=== PATIENT | female | born 1940 | race Caucasian/White ===

== ENCOUNTER 2016-09-15 09:03 | Emergency (ER) | payer MEDICARE ==
[~2016-09-15 09:03] MED LIST: ASCO500C PO; ASPI-482 PO; ATOR20TA PO; ERYT30GE2 TP; GLUC1TAB71 PO; HYDR-2161 PO; HYDR12.58 PO; LEVO200T PO; LORC10TA PO; MELA1TAB11 PO; METAMUCIL POWD283 GM PO; MULT-246 PO; NAPR500T3 PO; OMEG1CAP16 PO; OMEP40CA5 PO; SELE50TA PO; TRIA10.8 NS; UBID10CA5 PO; [UNRECOGNIZED DRUG - CODE] TP
[2016-09-15] MEDS ORDERED: NITROGLYCERIN SUBLINGUAL 0.4 MG BOTTLE OF 25. SL PRN (09:15)
[2016-09-15] MEDS: ASPIRIN 81 MG TAB.CHEW PO ONE (09:30)
[2016-09-15 09:33] LABS: BASO % 1 % (0-3); EOS # 0.1 x10^3/uL (0.0-0.7); EOS % 2 % (0-3); HEMATOCRIT 47.7 % (36.0-47.0); HEMOGLOBIN 15.8 g/dL (12.0-15.5); LYMPH # 1.2 x10^3/uL (1.0-4.8); LYMPH % 19 % (24-48); MEAN CORPUSCULAR HEMOGLOBIN 31 pg (25-35); MEAN CORPUSCULAR HGB CONC 33 g/dL (31-37); MEAN CORPUSCULAR VOLUME 92 fL (79-100); MONO # 0.6 x10^3/uL (0.0-1.1); MONO % 9 % (0-9); NEUT # 4.2 x10^3uL (1.8-7.7); NEUT % 69 % (31-73); PLATELET COUNT 201 x10^3/uL (140-400); RED BLOOD COUNT 5.16 x10^6/uL (3.50-5.40); RED CELL DISTRIBUTION WIDTH 14.5 % (11.5-14.5)
--- NOTE | 2016-09-15 09:38 | PHYS DOC ---
General Chief Complaint: CHEST PAIN Stated Complaint: CHEST PAIN Time Seen by MD: 09:05 Source: patient Exam Limitations: no limitations Problems: History of Present Illness Initial Comments Pt is 75/F to ED c/o chest pain. Pt states R-sided anterior chest pain began yesterday approximately 1700. Pain started when pt putting away dinner. Pt points to right lower chest/ribs, described as sharp/stabby worse with certain movements mild-moderate intensity. No sob/arm or neck sx/n/v/diaphoresis. Pt has been feeling weak recently, a few times wobbly when standing up no falls. Tried gaviscon at home without relief, states her home fasting BS this am 112. She took her BP at home and monitor said she was in atrial fibrillation. In ED no pain. Timing/Duration: 24 hours Severity: mild Modifying Factors: worse with movement Associated Symptoms: chest pain, malaise Allergies: Coded Allergies: No Known Drug Allergies (Unverified , 02/13/14) Past Medical History Medical History: other (atrial fibrillation, CAD, DM) Surgical History: angioplasty, cholecystectomy, tonsillectomy, other (TL, TKR, laminectomy, colon) Social History Smoker: quit greater than 1 year Alcohol: rarely Drugs: none Review of Systems Constitutional: denies chills, denies diaphoresis, denies fever, malaise Respiratory: denies cough, denies shortness of breath, denies wheezing Cardiovascular: chest paindenies palpitations, denies syncope Gastrointestinal: denies abdominal pain, denies diarrhea, denies nausea, denies vomiting Genitourinary: denies dysuria, denies frequency, denies hematuria Musculoskeletal: denies joint swelling, denies muscle stiffness, denies neck pain Psychiatric/Neurological: denies headache, denies numbness, denies paresthesia , denies weakness Physical Exam General Appearance: WD/WN, no apparent distress Eyes: bilateral eye EOMI, bilateral eye PERRL, bilateral eye normal inspection Ear, Nose, Throat: hearing grossly normal, normal ENT inspection, normal pharynx Respiratory: normal breath sounds, no respiratory distress Cardiovascular: normal peripheral pulses, irregularly irregular Gastrointestinal: non tender, soft Back: no CVA tenderness, no vertebral tenderness Extremities: non-tender, normal inspection 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 PHYSICIAN: BORIS SOSA DO REASON: cp PROCEDURE: PORTABLE CHEST 1V Portable chest, 09/15/2016: History: Chest pain Comparison is made to a study from 07/26/2010. The heart size is normal. There is tortuosity and calcific plaquing of the thoracic aorta. The pulmonary vascularity is within normal limits. No pulmonary infiltrates are seen. There is no evidence of pleural fluid. Mild spurring is present in the spine. IMPRESSION: 1. Aortic atherosclerosis. 2. No acute abnormality is detected. DICTATED AND SIGNED BY: SALONI PATEL MD DATE: 09/15/16800 CC: DESIRAE ROBERTS DO; BORIS SOSA DO ~ INR 3.5, CO2 33, BNP 432, Trop I < 0.017 1130: Time in department 2h 27min. Pt will have prolonged ED course due to lab delay, awaiting UA results. 1215: Discussing results, pt recalls unloading her car two days ago carrying some heavy items. In ED pt now can reproduce R pectoral discomfort. I discussed her symptoms, PMH, and today's results at length with pt. Pt symptoms to now appear muscle strain. Pt does have multiple risks, and although I feel pt OK for discharge home I did discuss inpatient evaluation with her. She refused, stating she was feeling well and planned to f/u with Dr Layton her Commissary Clerk this week hopeful for cardioversion. She expressed agreement/understanding with treatment plan. Departure Time of Disposition: 12:16 Disposition: 01 HOME, SELF-CARE Diagnosis: chest pain NOS, muscle strain, atrial fibrillation Condition: GOOD Patient Instructions: Atrial Fibrillation, Gocb-sl-[id number], Chest Pain ( Nonspecific), Bpww-[id number], Muscle Strain, Vvfj-el-[id number] Additional Instructions: Rest, no strenuous activity. Continue current meds. OTC tylenol/ibuprofen as needed. Heating pad 20 minutes, 4-6 times daily followed by gentle stretching. Follow up with your doctor in 2-3 days for recheck. Return to ED with new or changing symptoms. BORIS SOSA DO Sep 15, 2016 09:38
[2016-09-15 09:56] LABS: ALBUMIN 3.5 g/dL (3.4-5.0); ALBUMIN/GLOBULIN RATIO 0.9 (1.0-1.7); CALCIUM 9.1 mg/dL (8.5-10.1); CREATININE 0.6 mg/dL (0.6-1.0); POTASSIUM 4.1 mmol/L (3.5-5.1); TOTAL BILIRUBIN 0.6 mg/dL (0.2-1.0); TOTAL PROTEIN 7.5 g/dL (6.4-8.2)
--- NOTE | 2016-09-15 10:05 | RAD ---
Portable chest, 09/15/2016: History: Chest pain Comparison is made to a study from 07/26/2010. The heart size is normal. There is tortuosity and calcific plaquing of the thoracic aorta. The pulmonary vascularity is within normal limits. No pulmonary infiltrates are seen. There is no evidence of pleural fluid. Mild spurring is present in the spine. IMPRESSION: 1. Aortic atherosclerosis. 2. No acute abnormality is detected.
--- NOTE | 2016-09-15 11:44 | EKG ---
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
[2016-09-15 12:35] VITALS: BP 149/89
== END 2016-09-15 12:35 | disposition home or self-care (01) ==
LOC: ER 09:03
DX: R07.89 Other chest pain (principal); S29.011A Strain of muscle and tendon of front wall of thorax, initial encounter; I48.91 Unspecified atrial fibrillation; I25.10 Atherosclerotic heart disease of native coronary artery without angina pectoris; E11.9 Type 2 diabetes mellitus without complications; I70.0 Atherosclerosis of aorta; Z98.61 Coronary angioplasty status; Z87.891 Personal history of nicotine dependence; X58.XXXA Exposure to other specified factors, initial encounter; Y93.89 Activity, other specified; Y92.89 Other specified places as the place of occurrence of the external cause; Y99.8 Other external cause status
CPT/HCPCS: 36415; 71010; 80053; 82550; 83690; 83880; 84484; 85027; 85610; 85730; 93005; 99285-25

== ENCOUNTER → 2017-03-24 | Outpatient (CLI) | payer MEDICARE ==
[~2017-03-24] MED LIST changes: -NAPR500T3 PO; +NAPR500T4 PO
--- NOTE | 2017-03-24 14:05 | RAD ---
FOOT RIGHT 2V Clinical Indication: GREAT TOE INFECTION, X 1 DAY, NKI, NO SURGERY Comparison: None. Findings: No acute fracture or malalignment. No obvious osseous erosion. Moderate midfoot and interphalangeal arthrosis. Calcaneal enthesophytes. Achilles calcific tendinosis. Hammertoe deformities. Moderate soft tissue swelling of the ankle and foot. IMPRESSION: 1. No acute fracture or malalignment. No obvious osseous erosion. If there is continued clinical concern for osteomyelitis, MRI could be obtained. 2. Moderate midfoot and interphalangeal arthrosis.
== END | disposition home or self-care (01) ==
LOC: DXRADRC 10:37
PROVIDERS: ATTEND Physician Assistant
DX: M19.071 Primary osteoarthritis, right ankle and foot (principal); L08.9 Local infection of the skin and subcutaneous tissue, unspecified; M25.474 Effusion, right foot; M25.471 Effusion, right ankle
CPT/HCPCS: 73620

== ENCOUNTER 2017-06-12 12:22 | Emergency (ER) | payer MEDICARE ==
[2017-06-12 12:22] VITALS: BP 137/78
--- NOTE | 2017-06-12 12:38 | PHYS DOC ---
Past History Past Medical History: A-Fib, Diabetes Past Surgical History: Angioplasty, Cholecystectomy, Knee Replacement, Tonsillectomy, Tubal ligation, Other Alcohol Use: Rarely Drug Use: None Adult General Chief Complaint Chief Complaint: TOE PROBLEM HPI HPI Patient is a 76-year-old female who presents ambulatory to the ED with the concern for redness of the right great toe. Patient states she had an infection of the right great toe a couple of months ago. She took antibiotics and it healed up. She has been seeing her dough braker, who told her to be sure to get it checked right away if it started to turn red again. It was a little bit pink yesterday and more bright red today. It's a little bit painful. She denies fever or chills. She has been wearing a toe guard the dough braker gave her. She also wears special shoes with a large toe box. Patient states she has "diet controlled diabetes." Patient was on antibiotics a couple of months ago for a toe infection and she prefers to be on the one that her dough braker preferred at that time. Review of Systems Review of Systems Constitutional: Denies fever or chills [] GI: Nausea or vomiting Allergies Allergies Allergies Coded Allergies Type Severity Reaction Last Updated Verified No Known Drug Allergies 02/13/14 No Physical Exam Physical Exam Constitutional: Well developed, well nourished, no acute distress, non-toxic appearance. Alert, mentating normally, afebrile. HENT: Normocephalic, atraumatic, bilateral external ears normal, nose normal. [] Eyes: conjunctiva normal, no discharge. [] Neck: Normal range of motion, no stridor. [] Skin: Warm, dry, no erythema, no rash. [] Extremities: Right foot: There are chronic toe deformities present. Chronic callus and thickened toenails present. Right great toe has 2 small areas of erythema on the dorsal aspect. No drainage. No streaking. No swelling. Neurologic: Alert and oriented X 3, normal motor function, no focal deficits noted. [] EKG EKG [] Radiology/Procedures Radiology/Procedures [] Course & Med Decision Making Course & Med Decision Making Pertinent Labs and Imaging studies reviewed. (See chart for details) 76-year-old female has been watching her toes carefully and over the past 2 days her right great toe has gone from having no erythema, 2 slight pinkness, to some more reddish erythema. Based on her previous experience she believe she should be started on antibiotics. ED RN called the pharmacy and found out that she was prescribed Augmentin by her dough braker on 03/24, the patient once that same antibiotic. I prescribed Augmentin and encouraged podiatry follow-up. See instructions for plan. [] Dragon Disclaimer Dragon Disclaimer This electronic medical record was generated, in whole or in part, using a voice recognition dictation system. Departure Departure: Impression: Primary Impression: Cellulitis of toe, right Disposition: HOME, SELF-CARE Condition: STABLE Referrals: DESIRAE ROBERTS DO (PCP) Additional Instructions: As much as possible, keep the toe elevated. Protect it from further injury. Protect it from being squeezed by your shoes, wear the toe protector you were given. Recheck with your dough braker as soon as possible. Scripts Amoxicillin/Potassium Clav (AUGMENTIN 875-125 TABLET) 1 Each Tablet 1 TAB PO BID for toe infection, #14 TAB Prov: TAMMY TRAN MD 06/12/17 TAMMY TRAN MD Jun 12, 2017 12:38
[2017-06-12] MEDS ORDERED: AMOX1TAB61 PO (12:54)
== END 2017-06-12 12:59 | disposition home or self-care (01) ==
LOC: ER 12:22
DX: L03.032 Cellulitis of left toe (principal); E11.9 Type 2 diabetes mellitus without complications; I48.91 Unspecified atrial fibrillation
CPT/HCPCS: 99283

== ENCOUNTER 2018-01-12 15:32 | Emergency (ER) | payer MEDICARE ==
[~2018-01-12 15:32] MED LIST changes: +AMOX1TAB61 PO; +NAPR-514 PO; -NAPR500T4 PO
[2018-01-12] MEDS ORDERED: COCAINE 4% TOPICAL SOLUTION TP ONE (15:45)
[2018-01-12] MEDS ORDERED: OXYMETAZOLINE 0.05% NASAL SPRAY 15ML BOTTLE. NS ONE (15:45)
[2018-01-12 15:53] LABS: BASO % 1 % (0-3); EOS # 0.1 x10^3/uL (0.0-0.7); EOS % 2 % (0-3); HEMATOCRIT 46.8 % (36.0-47.0); HEMOGLOBIN 15.8 g/dL (12.0-15.5); LYMPH # 1.8 x10^3/uL (1.0-4.8); LYMPH % 35 % (24-48); MEAN CORPUSCULAR HEMOGLOBIN 32 pg (25-35); MEAN CORPUSCULAR HGB CONC 34 g/dL (31-37); MEAN CORPUSCULAR VOLUME 95 fL (79-100); MONO # 0.7 x10^3/uL (0.0-1.1); MONO % 14 % (0-9); NEUT # 2.6 x10^3uL (1.8-7.7); NEUT % 48 % (31-73); PLATELET COUNT 173 x10^3/uL (140-400); RED BLOOD COUNT 4.92 x10^6/uL (3.50-5.40); RED CELL DISTRIBUTION WIDTH 13.1 % (11.5-14.5); WHITE BLOOD COUNT 5.3 x10^3/uL (4.0-11.0)
[2018-01-12 16:02] LABS: CALCIUM 8.9 mg/dL (8.5-10.1); CREATININE 0.5 mg/dL (0.6-1.0); GFR 120.3; POTASSIUM 3.9 mmol/L (3.5-5.1)
--- NOTE | 2018-01-12 16:22 | PHYS DOC ---
Past History Past Medical History: A-Fib, Diabetes, Hypothyroid Past Surgical History: Tubal ligation Alcohol Use: None Drug Use: None Adult General Chief Complaint Chief Complaint: NOSEBLEED HPI HPI 77-year-old male patient with history of atrial flutter ablation on Coumadin brought in by EMS because of epistaxis. Patient states she has onset of epistaxis from the side of her nose that did not stop with local pressure. Patient denies injury, history of epistaxis, ecchymoses and easy bruising, dizziness, shortness of breath and palpitation. Review of Systems Review of Systems Constitutional: Denies fever or chills [] Eyes: Denies change in visual acuity, redness, or eye pain [] HENT: Denies nasal congestion or sore throat , reports nose bleed Respiratory: Denies cough or shortness of breath [] Cardiovascular: No additional information not addressed in HPI [] GI: Denies abdominal pain, nausea, vomiting, bloody stools or diarrhea [] : Denies dysuria or hematuria [] Musculoskeletal: Denies back pain or joint pain [] Integument: Denies rash or skin lesions [] Neurologic: Denies headache, focal weakness or sensory changes [] Endocrine: Denies polyuria or polydipsia [] All other systems were reviewed and found to be within normal limits, except as documented in this note. Current Medications Current Medications Current Medications Medications (Trade) Dose Ordered Sig/Minda Start Time Stop Time Status Last Admin Dose Admin Cocaine HCl 4 ml 1X ONCE 01/12/18 15:45 01/12/18 15:46 DC Oxymetazoline HCl (Afrin) 2 spray 1X ONCE 01/12/18 15:45 01/12/18 15:46 DC Allergies Allergies Allergies Coded Allergies Type Severity Reaction Last Updated Verified No Known Drug Allergies 02/13/14 No Physical Exam Physical Exam Constitutional: Well developed, well nourished, mild distress, non-toxic appearance. [] HENT: Normocephalic, atraumatic, oropharynx moist, no oral exudates, active bleeding from left naris, unable to examine inside nasal cavity Eyes: PERRLA, EOMI, conjunctiva normal, no discharge. [] Neck: Normal range of motion, no tenderness, supple, no stridor. [] Cardiovascular: Irregularly irregular rhythm no murmur [] Lungs & Thorax: Bilateral breath sounds clear to auscultation [] Skin: Warm, dry, no erythema, no rash. [] Back: No tenderness, no CVA tenderness. [] Extremities: No tenderness, no cyanosis, no clubbing, ROM intact, no edema. [] Neurologic: Alert and oriented X 3, normal motor function, normal sensory function, no focal deficits noted. [] Psychologic: Affect normal, judgement normal, mood normal. [] Current Patient Data Vital Signs Vital Signs Date Time Temp Pulse Resp B/P (MAP) Pulse Ox O2 Delivery O2 Flow Rate FiO2 01/12/18 15:59 97.9 78 24 96 Room Air Lab Results Laboratory Tests Test 01/12/18 15:35 White Blood Count 5.3 x10^3/uL (4.0-11.0) Red Blood Count 4.92 x10^6/uL (3.50-5.40) Hemoglobin 15.8 g/dL (12.0-15.5) H Hematocrit 46.8 % (36.0-47.0) Mean Corpuscular Volume 95 fL (79-100) Mean Corpuscular Hemoglobin 32 pg (25-35) Mean Corpuscular Hemoglobin Concent 34 g/dL (31-37) Red Cell Distribution Width 13.1 % (11.5-14.5) Platelet Count 173 x10^3/uL (140-400) Neutrophils (%) (Auto) 48 % (31-73) Lymphocytes (%) (Auto) 35 % (24-48) Monocytes (%) (Auto) 14 % (0-9) H Eosinophils (%) (Auto) 2 % (0-3) Basophils (%) (Auto) 1 % (0-3) Neutrophils # (Auto) 2.6 x10^3uL (1.8-7.7) Lymphocytes # (Auto) 1.8 x10^3/uL (1.0-4.8) Monocytes # (Auto) 0.7 x10^3/uL (0.0-1.1) Eosinophils # (Auto) 0.1 x10^3/uL (0.0-0.7) Basophils # (Auto) 0.0 x10^3/uL (0.0-0.2) Sodium Level 138 mmol/L (136-145) Potassium Level 3.9 mmol/L (3.5-5.1) Chloride Level 103 mmol/L (98-107) Carbon Dioxide Level 30 mmol/L (21-32) Anion Gap 5 (6-14) L Blood Urea Nitrogen 15 mg/dL (7-20) Creatinine 0.5 mg/dL (0.6-1.0) L Estimated GFR (Cockcroft-Gault) 120.3 Glucose Level 104 mg/dL (70-99) H Calcium Level 8.9 mg/dL (8.5-10.1) EKG EKG [] Radiology/Procedures Radiology/Procedures [] Course & Med Decision Making Course & Med Decision Making Pertinent Labs reviewed. (See chart for details) Evaluation of patient in ER showed 77-year-old male patient on Coumadin brought in because of nasal bleeding. Patient had Activa heavy bleeding from left nares that controlled with applying nasal balloon and patient tolerated the procedure well. INR was 2.1. Patient complaining of headache while she was in ER as a constant headaches and rated her pain 3/10 that improved with [place]. Patient had unremarkable neuro exam. Patient instructed to come back to emergency room in 3 days or follow with her primary care physician for the moving of the packing. Prescription for antibiotics was given. Dragon Disclaimer Dragon Disclaimer This electronic medical record was generated, in whole or in part, using a voice recognition dictation system. Nose Bleed Procedure Nose Bleed Procedure Indication: Epistaxis Pre-medication: []Afrin and cocaine nasal spray Procedure: The patient was positioned appropriately and the nares were cleared as well as possible. The bleeding site was [left side]. Balloon Rhinocort nasal packing in left side. And patient tolerated the procedure well. Complications: none] Departure Departure: Impression: Primary Impression: Epistaxis Additional Impressions: Bleeding on Coumadin Headache Atrial fibrillation Disposition: HOME, SELF-CARE (at 1657) Condition: IMPROVED Referrals: DESIRAE ROBERTS DO (PCP) Patient Instructions: General Headache Without Cause, Nosebleed Additional Instructions: Follow-up with your physician or emergency room in 3 days for removing the nasal packing Return to emergency if continues to have bleeding Scripts Amoxicillin (AMOXICILLIN) 500 Mg Capsule 1 CAP PO TID, #15 CAP Prov: WENDY HIGH MD 01/12/18 Problem Qualifiers WENDY HIGH MD Jan 12, 2018 16:22
[2018-01-12] MEDS ORDERED: AMOX500C PO (17:02)
[2018-01-12] MEDS ORDERED: HYDROcodone/APAP 5/325MG 1 TAB TABLET PO ONE (17:15)
[2018-01-12 17:20] VITALS: BP 136/71
== END 2018-01-12 16:55 | disposition home or self-care (01) ==
LOC: ER 15:32
DX: R04.0 Epistaxis (principal); R51 Headache; I48.91 Unspecified atrial fibrillation; E11.9 Type 2 diabetes mellitus without complications; E03.9 Hypothyroidism, unspecified; Z79.01 Long term (current) use of anticoagulants
CPT/HCPCS: 30901; 36415; 80048; 85025; 85610; 99284

== ENCOUNTER → 2018-04-19 | Outpatient (CLI) | payer MEDICARE ==
[~2018-04-19] MED LIST changes: +AMOX500C PO; -SELE50TA PO; +SELE50TA2 PO
--- NOTE | 2018-04-20 17:35 | RAD ---
Bone densitometry with DEXA examination Indications: screening for postmenopausal osteoporosis. History of lumbar fusion. Comparison study: October 06, 2010. Bone Density: -BMD: - Total right hip.......... 1.037 mg/cm2 -Left forearm-radius 33%..... 0.797 g/cm2 T-Score: - Total right hip.......... 0.7 -Left forearm-radius 33%...... 1.2 Z-Score: - Total right hip........... 1.8 -Left forearm-radius 33%...... 3.5 World Health Organization criteria for BMD interpretation classify patients as Normal (T-score at or above -1.0), Osteopenic (T-score between -1.0 and -2.5), or Osteoporotic (T-score at or below -2.5). Impression: 1. Total right hip--- normal. Since the previous study in 2010, there has been a decrease of the BMD of 9%. 2. Left forearm-radius 33%--- normal study. No comparison available. Electronically signed by: Meet Randall MD (04/20/2018 5:32 PM) [id number]
--- NOTE | 2018-05-03 15:27 | RAD ---
DATE: 04/19/2018 EXAM: MAMMO ASHLEY SCREENING BILATERAL HISTORY: Routine screening COMPARISON: 01/02/2013 and 02/28/2014 exams performed at an outside facility This study was interpreted with the benefit of Computerized Aided Detection (CAD). Breast Density: SCATTERED The breast parenchyma shows scattered fibroglandular densities. Breast parenchyma level B. FINDINGS: Benign calcifications are present. No masses or distortion. No suspicious calcification cluster. IMPRESSION: Normal BI-RADS CATEGORY: 2 BENIGN FINDING(S) RECOMMENDED FOLLOW-UP: 12M 12 MONTH FOLLOW-UP PQRS compliance statement: Patient information was entered into a reminder system with a target due date in one year for the next mammogram. Mammography is a sensitive method for finding small breast cancers, but it does not detect them all and is not a substitute for careful clinical examination. A negative mammogram does not negate a clinically suspicious finding and should not result in delay in biopsying a clinically suspicious abnormality. "Our facility is accredited by the [employer] Mammography Program."
== END | disposition home or self-care (01) ==
LOC: DXRAD 12:43
PROVIDERS: ATTEND General Practice
DX: Z12.31 Encounter for screening mammogram for malignant neoplasm of breast (principal); Z13.820 Encounter for screening for osteoporosis; Z78.0 Asymptomatic menopausal state
CPT/HCPCS: 77063; 77067; 77080

== ENCOUNTER → 2018-07-04 | Outpatient (CLI) | payer MEDICARE ==
--- NOTE | 2018-07-04 08:53 | CARD ---
MR#: [id number] Date of Study: 07/04/2018 Ordering Physician: FELTON SORTO, Referring Physician: FELTON SORTO, Tech: Roz Mcnair BENEDICT APPROVED REPORT EXAM: Two-dimensional and M-mode echocardiogram with Doppler and color Doppler. Other Information Quality : GoodHR: 66bpm Rhythm : Atrial Fibrillation INDICATION Atrial Fibrillation 2D DIMENSIONS RVDd3.0 (2.9-3.5cm)Left Atrium(2D)4.6 (1.6-4.0cm) IVSd1.3 (0.7-1.1cm)Aortic Root(2D)3.3 (2.0-3.7cm) LVDd5.1 (3.9-5.9cm)LVOT Diameter2.2 (1.8-2.4cm) PWd1.2 (0.7-1.1cm)LVDs3.5 (2.5-4.0cm) FS (%) 30.6 %SV70.8 ml LVEF(%)57.9 (>50%) M-Mode DIMENSIONS Left Atrium(MM)4.45 (2.5-4.0cm)Aortic Root3.69 (2.2-3.7cm) Aortic Valve AoV Peak Deandre.202.5cm/sAoV VTI45.9cm AO Peak GR.16.4mmHgLVOT Peak Deandre.94.6cm/s LVOT VTI 21.94cmAO Mean GR.9mmHg PEGGY (VMAX)1.51ax5AYR (VTI)1.74cm2 Mitral Valve MV E Eqtddrvf793.5cm/sMV DECEL KXCC626kr MV A Dcdubpub09.1cm/sE/A Ratio3.6 MV A Pawreoxw02ed Pulmonary Valve PV Peak Xkbsyobi97.8cm/sPV Peak Grad.3mmHg Tricuspid Valve TR P. Xxelpxpy493lx/sRAP SRBWHGQP0fuKv TR Peak Gr.33owAqFKIN74uoCt LEFT VENTRICLE The left ventricle is normal size. There is mild concentric left ventricular hypertrophy. The left ve ntricular systolic function is normal. The Ejection Fraction is 55-60%. There is normal LV segmental wall motion. RIGHT VENTRICLE The right ventricle is normal size. There is normal right ventricular wall thickness. The right ventr icular systolic function is normal. ATRIA The left atrium is moderately dilated. The right atrium is moderately dilated. The interatrial septum is intact with no evidence for an atrial septal defect or patent foramen ovale as noted on 2-D or Do ppler imaging. AORTIC VALVE The aortic valve is mildly to moderately calcified. Doppler and Color Flow revealed trace aortic regu rgitation. There is mild valvular aortic stenosis. Calculated aortic valve area is 1.7 cm2 with maxim um pressure gradient of 16 mmHg and mean pressure gradient of 9 mmHg. MITRAL VALVE Mitral annular calcification is mild. There is no evidence of mitral valve prolapse. There is no mitr al valve stenosis. Doppler and Color-flow revealed mild to moderate mitral regurgitation. TRICUSPID VALVE The tricuspid valve is normal in structure and function. Doppler and Color Flow revealed mild tricusp id regurgitation. There is mild pulmonary hypertension. The PA pressure was estimated at 34 mmHg. The re is no tricuspid valve prolapse or vegetation. There is no tricuspid valve stenosis. PULMONIC VALVE The pulmonary valve is normal in structure and function. Doppler and Color Flow revealed no pulmonic valvular regurgitation. There is no pulmonic valvular stenosis. GREAT VESSELS The aortic root is normal in size. The ascending aorta is normal in size. The IVC collapses <50% with inspiration. PERICARDIAL EFFUSION There is no evidence of significant pericardial effusion. Critical Notification Critical Value: No <Conclusion> The left ventricular systolic function is normal. The Ejection Fraction is 55-60%. There is normal LV segmental wall motion. The left atrium is moderately dilated. There is mild valvular aortic stenosis. Mild to moderate mitral regurgitation. Mild tricuspid regurgitation. There is mild pulmonary hypertension. The PA pressure was estimated at 34 mmHg. There is no evidence of significant pericardial effusion. Signed by : Sergio Castle, Electronically Approved : 07/04/2018 08:51:04
== END | disposition home or self-care (01) ==
LOC: ECHO 07:47
PROVIDERS: ATTEND Internal Medicine Cardiovascular Disease
DX: I08.3 Combined rheumatic disorders of mitral, aortic and tricuspid valves (principal); I27.20 Pulmonary hypertension, unspecified
CPT/HCPCS: 93306

== ENCOUNTER → 2019-06-05 | Outpatient (CLI) | payer MEDICARE ==
[~2019-06-05] MED LIST changes: +OMEP40CA45 PO; -OMEP40CA5 PO
--- NOTE | 2019-06-05 12:17 | RAD ---
EXAM: Chest, 2 views. HISTORY: Cough. Bronchitis. COMPARISON: 09/15/2016. FINDINGS: 2 views of chest are obtained. There is no infiltrate, effusion or pneumothorax. There is a prominent cardiac silhouette. There is lumbar fusion instrumentation and evidence of lumbar laminectomy surgery. IMPRESSION: No acute pulmonary finding. Prominent cardiac silhouette. Electronically signed by: Liliana Bermudez MD (06/05/2019 12:14 PM) [facility]
== END | disposition home or self-care (01) ==
LOC: DXRAD 11:03
PROVIDERS: ATTEND Nurse Practitioner
DX: R05 Cough (principal)
CPT/HCPCS: 71046

== ENCOUNTER 2020-08-23 11:35 | Emergency (ER) | payer MEDICARE ==
[~2020-08-23] VITALS: Ht 167.6 cm; Wt 104.1 kg
[~2020-08-23 11:35] MED LIST changes: -HYDR-2161 PO; +HYDR-3072 PO
--- NOTE | 2020-08-23 11:58 | PHYS DOC ---
Past History Past Medical History: A-Fib, Diabetes, Hypothyroid Past Surgical History: Tubal ligation Alcohol Use: None Drug Use: None General Adult EDM: Chief Complaint: RECTAL BLEED HPI: HPI: 79-year-old female past medical history significant for A. fib on Coumadin, hypertension lipidemia, hypertension, hypothyroidism and GERD, presents the ED with complaints of Review of Systems: Review of Systems: Constitutional: Denies fever or chills Eyes: Denies change in visual acuity HENT: Denies nasal congestion or sore throat Respiratory: Denies cough or shortness of breath Cardiovascular: Denies chest pain or edema GI: Denies abdominal pain, nausea, vomiting, bloody stools or diarrhea : Denies dysuria Musculoskeletal: Denies back pain or joint pain Integument: Denies rash Neurologic: Denies headache, focal weakness or sensory changes Endocrine: Denies polyuria or polydipsia Lymphatic: Denies swollen glands Psychiatric: Denies depression or anxiety Allergies: Allergies: Allergies Coded Allergies Type Severity Reaction Last Updated Verified No Known Drug Allergies 02/13/14 No Physical Exam: PE: Constitutional: Well developed, well nourished, no acute distress, non-toxic appearance. HENT: Normocephalic, atraumatic, Eyes: EOMI, conjunctiva normal, no discharge. Neck: Normal range of motion, supple, Cardiovascular: S1/2 present, regular rhythm Lungs & Thorax: Speaking in full sentences, bilateral equal chest rise, no tachypnea or increased work of breathing Abdomen: soft, no tenderness, Skin: Warm, dry, no erythema, no rash. [] Back: No tenderness, no CVA tenderness. [] Extremities: No tenderness, no cyanosis, no lower extremity edema Neurologic: Alert and oriented X 3, normal motor function, normal sensory function, no focal deficits noted. [] Psychologic: Affect normal, judgement normal, mood normal. [] EKG: EKG: [] Radiology/Procedures: Radiology/Procedures: IMAGING REPORT Signed PATIENT: PRIMITIVO VILLALTA ACCOUNT: [id number] : 1940 LOCATION: ER AGE: 79 SEX: F EXAM STATUS: REG ER ORD. PHYSICIAN: JULIO HANDLEY DO REASON: Rectal bleed, abdomen pain Omni 300 75cc PROCEDURE: CT ABD PELV W/ IV CONTRST ONLY EXAM: CT Abdomen and Pelvis with IV contrast CLINICAL HISTORY: Rectal bleed, abdomen pain COMPARISON: none TECHNIQUE: Helical CT of the abdomen and pelvis was performed following the administration of intravenous contrast. Axial, coronal and sagittal reformatted images were generated. PQRS compliance statement - One or more of the following individualized dose reduction techniques were utilized for this study: 1. Automated exposure control 2. Adjustment of the mA and/or kV according to patient size 3. Use of iterative reconstruction technique FINDINGS: Lower Chest: Linear opacities medial lower lobes likely scarring/atelectasis. Heart is mildly enlarged. Pacer leads and coronary artery calcifications are seen. Abdomen and Pelvis: No focal liver lesion. Cholecystectomy clips are seen. No biliary duct dilatation. A few small low-density lesions are seen within the pancreas, for example in the pancreatic tail 7 mm hypodense lesion (image 23) and the pancreatic body/tail junction a 1.4 cm lesion is seen (image 23). Additional exophytic 1.5 cm cystic or hypodense lesion is seen at inferior margin (image 27). Spleen is normal in appearance. Right lower pole renal cyst is seen. Symmetric nephrograms. No hydronephrosis. No hydroureter. Bladder is distended, upper limits normal in size. Large volume colonic stool content is seen. Colonic diverticula are noted. No evidence for acute diverticulitis. Appendix is not convincingly seen. No specific pericecal inflammatory changes are seen. Pessary type device is seen in the vaginal vault. Aorta is normal in caliber. Atherosclerotic calcifications are seen. No abdominal or pelvic lymphadenopathy. Bones: Decreased bone mineral density. Hip joint, SI joints and lower lumbar spine degenerative changes as well as degenerative changes of the pubic symphysis. IMPRESSION: 1. Large volume colonic stool content can be correlated for possible constipation. 2. Colonic diverticulosis without evidence for acute diverticulitis. 3. Low-density pancreatic lesions are seen, indeterminate and should be correlated with MRI abdomen. Electronically signed by: Torito Hernandez MD (08/23/2020 1:35 PM) [facility] DICTATED AND SIGNED BY: TORITO HERNANDEZ MD DATE: 08/23/20 2495 CC: EDWARD RECINOS DO; [facility] ~MTH0 0 Heart Score: Risk Factors: Risk Factors: DM, Current or recent (<one month) smoker, HTN, HLP, family history of CAD, obesity. Risk Scores: Score 0 - 3: 2.5% MACE over next 6 weeks - Discharge Home Score 4 - 6: 20.3% MACE over next 6 weeks - Admit for Clinical Observation Score 7 - 10: 72.7% MACE over next 6 weeks - Early Invasive Strategies Course & Med Decision Making: Course & Med Decision Making Pertinent Labs and Imaging studies reviewed. (See chart for details) Will discharge home with strict ED return precautions were given for melena, hematochezia, exertional dyspnea, syncope or dizziness. Encouraged urgent outpatient follow-up with PMD and GI and oncology. Life-threatening processes were considered but are low suspicion at this time, given history, physical exam and ED workup. Pt was educated on all prescription medications and adverse effects. All patient's questions were answered and pt was stable at time of discharge. Life/limb-threatening differential includes but is not limited to, GI bleeding, toxigenic versus infectious diarrhea, shock, mesenteric ischemia, electrolyte abnormality, thyroid storm, toxidrome, antibiotic related, head trauma, syncope, malignancy, inflammatory bowel disease or surgical abdomen (appendicitis or diverticulitis). I spoken with the patient and her caregivers. I explained the patient's condition, diagnoses and treatment plan based on the information available to me at this time. I have answered the patient and her caregiver's questions and addressed any concerns. The patient and her caregivers have a good understanding of patient's diagnosis, condition and treatment plan as can be expected at this point. Vital signs have been stable. Patient's condition is stable and appropriate for discharge from the emergency department. Patient will pursue further outpatient evaluation with primary care physician or other designated or consulting physician as outlined in the discharge instructions. The patient and/or caregivers are agreeable to this plan of care and follow-up instructions have been explained in detail. The patient and/or caregivers have received these instructions in written form and have expressed an understanding of the discharge instructions. The patient and/or caregivers are aware that any significant change of condition or worsening of symptoms should prompt immediate return to this or the closest emergency department or call to 911. Hitesh Disclaimer: Hitesh Disclaimer: This electronic medical record was generated, in whole or in part, using a voice recognition dictation system. Departure Departure: Impression: Primary Impression: Melena Additional Impression: Mass of pancreas Disposition: 01 DC HOME SELF CARE/HOMELESS Condition: STABLE Referrals: EDWARD RECINOS DO (PCP) IN 24-48 hours Patient Instructions: Constipation, Adult, Gastrointestinal Bleeding Additional Instructions: FOLLOW UP WITH GASTROENTEROLOGY: Gastroenterology [facility] Address: [address] [place] [address] FOLLOW UP WITH: Hematology/Oncology [facility] Address: [address] [place] [address] EMERGENCY DEPARTMENT GENERAL DISCHARGE INSTRUCTIONS Thank you for coming to [facility] (ED) today and trusting us with you care. We trust that you had a positivie experience in our Emergency Department. If you wish to speak to the department management, you may call the director at [phone]. YOUR FOLLOW UP INSTRUCTIONS ARE FOLLOWS: 1. Do you have a private Doctor? If you do not have a private doctor, please ask for a resource list of physicians or clinics that may be able to assist you with follow up care. 2. The Emergency Physician has interpreted your x-rays. The X-Ray specialist will also review them. If there is a change in the findings, you will be notified in 48 hours when at all possible. 3. A lab test or culture has been done, your results will be reviewed and you will be notified if you need a change in treatment. ADDITIONAL INSTRUCTIONS AND INFORMATION: 1. Your care today has been supervised by a physician who is specially trained in emergency care. Many problems require more than one evaluation for a complete diagnosis and treatment. We recommend that you schedule your follow up appointment as recommended to ensure complete treatment of you illness or injury. If you are unable to obtain follow up care and continue to have a problem, or if your condition worsens, we recommend that you return to the ED. 2. We are not able to safely determine your condition over the phone nor are we able to give sound medical advice over the phone. For these safety reasons, if you call for medical advice we will ask you to come to the ED for further evaluation. 3. If you have any questions regarding these discharge instructions please call the ED at [phone]. SAFETY INFORMATION: In the interest of safety, wellness, and injury prevention; we encourage you to wear your sealbelt, if you smoke; quite smoking, and we encourage family to use a protective helmet for bicycling and other sporting events that present an increased risk for head injury. IF YOUR SYMPTOMS WORSEN OR NEW SYMPTOMS DEVELOP, OR YOU HAVE CONCERNS ABOUT YOUR CONDITION; OR IF YOUR CONDITION WORSENS WHILE YOU ARE WAITING FOR YOUR FOLLOW UP APPOINTMENT; EITHER CONTACT YOUR PRIMARY CARE DOCTOR, THE PHYSICIAN WHOSE NAME AND NUMBER YOU WERE GIVEN, OR RETURN TO THE ED IMMEDIATELY. [facility] DO Aug 23, 2020 11:58
[2020-08-23] MEDS ORDERED: IOHEXOL 300 MG/ML 75 ML VIAL. IV ONE (12:15)
[2020-08-23] MEDS ORDERED: CONTRAST GIVEN. MC PRN (12:15)
[2020-08-23 12:45] LABS: BASO % 1 % (0-3); EOS # 0.2 x10^3/uL (0.0-0.7); EOS % 4 % (0-3); HEMATOCRIT 42.7 % (36.0-47.0); HEMOGLOBIN 14.1 g/dL (12.0-15.5); LYMPH # 0.9 x10^3/uL (1.0-4.8); LYMPH % 17 % (24-48); MEAN CORPUSCULAR HEMOGLOBIN 32 pg (25-35); MEAN CORPUSCULAR HGB CONC 33 g/dL (31-37); MEAN CORPUSCULAR VOLUME 97 fL (79-100); MONO # 0.8 x10^3/uL (0.0-1.1); MONO % 15 % (0-9); NEUT # 3.3 x10^3uL (1.8-7.7); NEUT % 64 % (31-73); PLATELET COUNT 178 x10^3/uL (140-400); RED BLOOD COUNT 4.42 x10^6/uL (3.50-5.40); WHITE BLOOD COUNT 5.1 x10^3/uL (4.0-11.0)
[2020-08-23 12:49] LABS: BACTERIA,URINE 0 /HPF (0-FEW); BILIRUBIN,URINE NEG (NEG); CLARITY,URINE CLEAR; COLOR,URINE YELLOW; GLUCOSE,URINE NEG (NEG); NITRITE,URINE NEG (NEG); RBC,URINE 0 /HPF (0-2); SQUAMOUS EPITHELIAL CELL,UR OCC /LPF; UROBILINOGEN,URINE 0.2 mg/dL (0.2 mg/dL); WBC,URINE 0 /HPF (0-4)
[2020-08-23 12:57] LABS: CALCIUM 8.9 mg/dL (8.5-10.1); CREATININE 0.5 mg/dL (0.6-1.0); GFR 119.6
[2020-08-23 13:02] LABS: ALBUMIN 3.5 g/dL (3.4-5.0); ALBUMIN/GLOBULIN RATIO 0.9 (1.0-1.7); TOTAL BILIRUBIN 0.6 mg/dL (0.2-1.0); TOTAL PROTEIN 7.3 g/dL (6.4-8.2)
--- NOTE | 2020-08-23 13:37 | RAD ---
EXAM: CT Abdomen and Pelvis with IV contrast CLINICAL HISTORY: Rectal bleed, abdomen pain COMPARISON: none TECHNIQUE: Helical CT of the abdomen and pelvis was performed following the administration of intrave nous contrast. Axial, coronal and sagittal reformatted images were generated. PQRS compliance statement - One or more of the following individualized dose reduction techniques wer e utilized for this study: 1. Automated exposure control 2. Adjustment of the mA and/or kV according to patient size 3. Use of iterative reconstruction technique FINDINGS: Lower Chest: Linear opacities medial lower lobes likely scarring/atelectasis. Heart is mildly enlarged. Pacer lead s and coronary artery calcifications are seen. Abdomen and Pelvis: No focal liver lesion. Cholecystectomy clips are seen. No biliary duct dilatation. A few small low-de nsity lesions are seen within the pancreas, for example in the pancreatic tail 7 mm hypodense lesion (image 23) and the pancreatic body/tail junction a 1.4 cm lesion is seen (image 23). Additional exoph ytic 1.5 cm cystic or hypodense lesion is seen at inferior margin (image 27). Spleen is normal in lashell earance. Right lower pole renal cyst is seen. Symmetric nephrograms. No hydronephrosis. No hydroureter. Bladde r is distended, upper limits normal in size. Large volume colonic stool content is seen. Colonic diverticula are noted. No evidence for acute dive rticulitis. Appendix is not convincingly seen. No specific pericecal inflammatory changes are seen. Pessary type device is seen in the vaginal vault. Aorta is normal in caliber. Atherosclerotic calcifications are seen. No abdominal or pelvic lymphaden opathy. Bones: Decreased bone mineral density. Hip joint, SI joints and lower lumbar spine degenerative changes as w ell as degenerative changes of the pubic symphysis. IMPRESSION: 1. Large volume colonic stool content can be correlated for possible constipation. 2. Colonic diverticulosis without evidence for acute diverticulitis. 3. Low-density pancreatic lesions are seen, indeterminate and should be correlated with MRI abdomen. Electronically signed by: Torito Espinoza MD (08/23/2020 1:35 PM) [facility]
[2020-08-23 13:39] LABS: FECAL OB PT POSITIVE (NEG)
[2020-08-23 14:57] VITALS: BP 124/66
== END 2020-08-23 15:55 | disposition home or self-care (01) ==
LOC: ER 11:35
DX: K92.1 Melena (principal); R16.0 Hepatomegaly, not elsewhere classified; I48.20 Chronic atrial fibrillation, unspecified; E11.9 Type 2 diabetes mellitus without complications; E03.9 Hypothyroidism, unspecified; Z98.51 Tubal ligation status
CPT/HCPCS: 36415; 74177; 80053; 81001; 82274; 83690; 85025; 85610; 85730; 99285; Q9967

== ENCOUNTER 2020-10-28 09:17 | Emergency (ER) | payer MEDICARE ==
[~2020-10-28] VITALS: Ht 167.6 cm; Wt 104.1 kg
[2020-10-28 09:17] VITALS: BP 159/104
[2020-10-28 11:09] LABS: BILIRUBIN,URINE NEG (NEG); CLARITY,URINE HAZY; COLOR,URINE STRAW; GLUCOSE,URINE NEG (NEG); NITRITE,URINE NEG (NEG); UROBILINOGEN,URINE 0.2 mg/dL (0.2 mg/dL)
[2020-10-28 11:12] LABS: BACTERIA,URINE MANY /HPF (0-FEW); RBC,URINE OCC /HPF (0-2); SQUAMOUS EPITHELIAL CELL,UR MANY /LPF
[2020-10-28] MEDS ORDERED: CEPH500T PO (11:51)
--- NOTE | 2020-10-28 11:52 | PHYS DOC ---
Past History Past Medical History: A-Fib, Diabetes, Hypothyroid, Other Additional Past Medical Histor: prolapsed bladder pessary placed. Past Medical History vertigo, sleep apnea Past Surgical History: Appendectomy, Cholecystectomy, Knee Replacement, Pacemaker, Tonsillectomy, Tubal ligation, Other Additional Past Surgical Histo: ABLATION, COLON, LOWER BACK, carpel tunnel,toe Past Surgical History Cataract surgery, toe, lumbar spine, cardioversion Alcohol Use: None Drug Use: None General Adult EDM: Chief Complaint: URINARY FREQUENCY HPI: HPI: Patient is a [age] year old [sex] who presents with [] Review of Systems: Review of Systems: Constitutional: Denies fever or chills Eyes: Denies change in visual acuity HENT: Denies nasal congestion or sore throat Respiratory: Denies cough or shortness of breath Cardiovascular: Denies chest pain or edema GI: Denies abdominal pain, nausea, vomiting, bloody stools or diarrhea : Denies dysuria Musculoskeletal: Denies back pain or joint pain Integument: Denies rash Neurologic: Denies headache, focal weakness or sensory changes Endocrine: Denies polyuria or polydipsia Lymphatic: Denies swollen glands Psychiatric: Denies depression or anxiety Allergies: Allergies: Allergies Coded Allergies Type Severity Reaction Last Updated Verified latex Allergy Unknown 10/28/20 Yes Physical Exam: PE: Constitutional: Well developed, well nourished, no acute distress, non-toxic appearance. [] HENT: Normocephalic, atraumatic, bilateral external ears normal, oropharynx moist, no oral exudates, nose normal. [] Eyes: PERRLA, EOMI, conjunctiva normal, no discharge. [] Neck: Normal range of motion, no tenderness, supple, no stridor. [] Cardiovascular:Heart rate regular rhythm, no murmur [] Lungs & Thorax: Bilateral breath sounds clear to auscultation [] Abdomen: Bowel sounds normal, soft, no tenderness, no masses, no pulsatile masses. [] Skin: Warm, dry, no erythema, no rash. [] Back: No tenderness, no CVA tenderness. [] Extremities: No tenderness, no cyanosis, no clubbing, ROM intact, no edema. [] Neurologic: Alert and oriented X 3, normal motor function, normal sensory funct ion, no focal deficits noted. [] Psychologic: Affect normal, judgement normal, mood normal. [] Current Patient Data: Labs: Laboratory Tests Test 10/28/20 10:20 Urine Collection Type Unknown Urine Color Straw Urine Clarity Hazy Urine pH 7.0 Urine Specific [place] 1.010 Urine Protein Neg (NEG-TRACE) Urine Glucose (UA) Neg mg/dL (NEG) Urine Ketones (Stick) Neg mg/dL (NEG) Urine Blood Small (NEG) Urine Nitrite Neg (NEG) Urine Bilirubin Neg (NEG) Urine Urobilinogen Dipstick 0.2 mg/dL (0.2 mg/dL) Urine Leukocyte Esterase Mod (NEG) Urine RBC Occ /HPF (0-2) Urine WBC 5-10 /HPF (0-4) Urine Squamous Epithelial Cells Many /LPF Urine Bacteria Many /HPF (0-FEW) Microbiology 10/28/20 Wet Prep - Final, Complete Vital Signs: Vital Signs Date Time Temp Pulse Resp B/P (MAP) Pulse Ox O2 Delivery O2 Flow Rate FiO2 10/28/20 09:17 97.9 90 18 159/104 (122) 98 Room Air EKG: EKG: [] Radiology/Procedures: Radiology/Procedures: [] Heart Score: C/O Chest Pain: N/A Course & Med Decision Making: Course & Med Decision Making Pertinent Lab studies reviewed. (See chart for details) [] Dragon Disclaimer: Dragon Disclaimer: This electronic medical record was generated, in whole or in part, using a voice recognition dictation system. Departure Departure: Impression: Primary Impression: Urinary retention Additional Impressions: Prolapsed bladder UTI (urinary tract infection) Qualified Codes: N30.00 - Acute cystitis without hematuria Disposition: HOME / SELF CARE / HOMELESS Condition: STABLE Referrals: EDWARD RECINOS DO (PCP) Patient Instructions: Lezama Catheter Care, Adult, Prolapse, Urinary Retention, Acute, Female, [id number], Urinary Tract Infection, [id number] Additional Instructions: Please follow closely with your TECHNICIAN'S HELPER and/or an urologist for further management of bladder prolapse and for lezama cath evaluation/removal. Scripts Cephalexin (CEPHALEXIN) 500 Mg Tablet 1 TAB PO TID for UTI for 7 Days, #21 TAB Prov: JOANN CALDERON DO 10/28/20 JOANN CALDERON DO October 28, 2020 11:52
[2020-10-28] MEDS ORDERED: CEPHALEXIN 250 MG CAPSULE PO ONE (12:00)
== END 2020-10-28 12:10 | disposition home or self-care (01) ==
LOC: ER 09:17
DX: N81.10 Cystocele, unspecified (principal); N30.00 Acute cystitis without hematuria; R33.9 Retention of urine, unspecified; I48.91 Unspecified atrial fibrillation; E11.9 Type 2 diabetes mellitus without complications; E03.9 Hypothyroidism, unspecified; Z90.89 Acquired absence of other organs; Z90.49 Acquired absence of other specified parts of digestive tract; Z98.51 Tubal ligation status; Z95.0 Presence of cardiac pacemaker; Z91.040 Latex allergy status
CPT/HCPCS: 51702; 81001; 87086; 99284; Q0111

== ENCOUNTER 2020-11-29 08:39 | Emergency (ER) | payer MEDICARE ==
[~2020-11-29] VITALS: Ht 167.6 cm; Wt 104.9 kg
[~2020-11-29 08:39] MED LIST changes: +CEPH500T PO; -OMEP40CA45 PO; +OMEP40CA7 PO
--- NOTE | 2020-11-29 08:48 | PHYS DOC ---
Past History Past Medical History: A-Fib, Diabetes, Hypothyroid, Other Additional Past Medical Histor: prolapsed bladder pessary placed. Past Surgical History: Appendectomy, Cholecystectomy, Knee Replacement, Pacemaker, Tonsillectomy, Tubal ligation, Other Additional Past Surgical Histo: ABLATION, COLON, LOWER BACK, carpel tunnel,toe Alcohol Use: None Drug Use: None Adult General HPI HPI Patient is a 80-year-old presenting with sister requesting Sellers catheter placement. She has extensive COMPENSATION INTERN history most concerning for prolapsed bladder. She is well covered in outpatient setting with MACHINE BUILDER and pending outpatient " bladder specialist" consultation to schedule sling repair. She was seen and victor manuel luated at our ER approximately 1 week ago and had Sellers catheter bag placed for similar symptoms. This was removed by her MACHINE BUILDER at outpatient follow-up. She subsequently was admitted for outpatient cardiac ablation and reports having to be self cathed several times throughout 48-hour admission due to inability to urinate. This has been ongoing since discharge 72 hours ago. States she is unable to fully initiate a stream due to prolapsed contents covering urethra. Has recent history of using a pessary but this was removed at the discretion of MACHINE BUILDER. No infectious symptoms such as fever, chest pain, shortness of breath, abdominal pain, dysuria. She is requesting Sellers catheter bag placement to be used until outpatient follow-up with bladder specialist Review of Systems Review of Systems Fourteen body systems of review of systems have been reviewed. See HPI for pertinent positives and negative responses, other mar all other systems are negative, non-pertinent or non-contributory Allergies Allergies Allergies Coded Allergies Type Severity Reaction Last Updated Verified latex Allergy Unknown 10/28/20 Yes Physical Exam Physical Exam Constitutional: Well developed, well nourished, no acute distress, non-toxic appearance. HENT: Normocephalic, atraumatic, bilateral external ears normal, oropharynx moist, no oral exudates, nose normal. Eyes: PERRLA, EOMI, conjunctiva normal, no discharge. Neck: Normal range of motion, no tenderness, supple, no stridor. Cardiovascular: Heart rate regular, sinus rhythm, no murmurs rubs or gallops Lungs & Thorax: Bilateral breath sounds clear to auscultation Abdomen: Bowel sounds normal, soft, no tenderness, no masses, no pulsatile masses. Nonsurgical abdomen, no peritoneal signs : Deferred by Skin: Warm, dry, no erythema, no rash. Back: No tenderness, no CVA tenderness. Extremities: No tenderness, no cyanosis, no clubbing, ROM intact, no edema. Neurologic: Alert and oriented X 3, grossly normal motor & sensory function, no focal deficits noted. Psychologic: Affect normal, judgement normal, mood normal. EKG EKG [] Radiology/Procedures Radiology/Procedures [] Heart Score C/O Chest Pain: No Risk Factors: Risk Factors: DM, Current or recent (<one month) smoker, HTN, HLP, family history of CAD, obesity. Risk Scores: Risk Factors: DM, Current or recent (<one month) smoker, HTN, HLP, family history of CAD, obesity. Course & Med Decision Making Course & Med Decision Making Discussed with the patient normal vitals, HPI and physical exam all nonconcerning for emergent or surgical issues. I empathized with patient's concern, I did disclose fear of placing Sellers catheter bag due to potential nidus for infection and other complications. Patient adamant about receiving Sellers bag and getting frustrated at the thought of leaving without 1. She is aware of the risks assumed by receiving a Sellers catheter and states the benefits will outweigh these. She has good family support, sister is visiting here in town for recent health issues and is providing care as needed for patient. Patient reports having good access to MACHINE BUILDER, states she can be seen in upcoming week for evaluation with plans to push-up bladder sling repair. I did disclose fact that patient might require outpatient urology follow-up if not already arranged. Ultimately, Sellers catheter bag placed and so, I stressed need for close outpatient follow-up to review today's ER visit. Strict return precautions were also discussed at length with good understanding by patient. Patient voiced understanding and agreement with the plan. Patient knows to come back for repeat evaluation if concerning signs or symptoms present prior to outpatient follow-up. Hemodynamically stable, ambulatory and well-appearing at time of disposition. Dragon Disclaimer Dragon Disclaimer This electronic medical record was generated, in whole or in part, using a voice recognition dictation system. Departure Departure: Impression: Primary Impression: Female bladder prolapse Disposition: HOME / SELF CARE / HOMELESS Condition: STABLE Referrals: EDWARD RECINOS DO (PCP) Patient Instructions: Sellers Catheter Care, Adult Additional Instructions: As discussed prior to outpatient follow-up, you need to contact your MACHINE BUILDER first thing Tuesday morning to review ER visit today. It is recommended that you see bladder specialist FANNIE for fixation of bladder prolapse that is likely causing all of your symptoms. I reviewed the fact that Sellers catheter placements are not recommended due to potential nidus of infection among other complications, you were aware of the risks of these and still requested placement so this was performed. As such, please defer to attach resource guide regarding catheter care. Please discuss ongoing need of this with your MACHINE BUILDER physician in outpatient setting. If any concerning signs or symptoms present prior to outpatient follow-up please do not hesitate to come back for repeat evaluation. It was a pleasure to take care of you and I wish you the best going forward REVA PARRA DO Nov 29, 2020 08:48
[2020-11-29 09:07] VITALS: BP 134/39
== END 2020-11-29 10:17 | disposition home or self-care (01) ==
LOC: ER 08:39
DX: N81.10 Cystocele, unspecified (principal); E11.9 Type 2 diabetes mellitus without complications; Z90.49 Acquired absence of other specified parts of digestive tract; Z98.51 Tubal ligation status; Z91.040 Latex allergy status
CPT/HCPCS: 99284-25

== ENCOUNTER → 2021-03-30 | Outpatient (CLI) | payer MEDICARE ==
[2021-03-30 12:56] LABS: BASO % 1 % (0-3); EOS # 0.1 x10^3/uL (0.0-0.7); EOS % 3 % (0-3); HEMATOCRIT 38.7 % (36.0-47.0); HEMOGLOBIN 12.3 g/dL (12.0-15.5); LYMPH # 1.1 x10^3/uL (1.0-4.8); LYMPH % 24 % (24-48); MEAN CORPUSCULAR HEMOGLOBIN 30 pg (25-35); MEAN CORPUSCULAR HGB CONC 32 g/dL (31-37); MEAN CORPUSCULAR VOLUME 93 fL (79-100); MONO # 0.7 x10^3/uL (0.0-1.1); MONO % 15 % (0-9); NEUT # 2.6 x10^3uL (1.8-7.7); NEUT % 58 % (31-73); PLATELET COUNT 205 x10^3/uL (140-400); RED BLOOD COUNT 4.17 x10^6/uL (3.50-5.40); RED CELL DISTRIBUTION WIDTH 16.6 % (11.5-14.5); WHITE BLOOD COUNT 4.5 x10^3/uL (4.0-11.0)
== END ==
LOC: LAB 11:25
PROVIDERS: ATTEND Internal Medicine Clinical Cardiac Electrophysiology
DX: I48.0 Paroxysmal atrial fibrillation (principal)
CPT/HCPCS: 36415; 85025

== ENCOUNTER → 2021-06-11 | Outpatient (CLI) | payer MEDICARE ==
[2021-06-11 14:31] LABS: BASO % 1 % (0-3); EOS # 0.2 x10^3/uL (0.0-0.7); EOS % 4 % (0-3); HEMATOCRIT 39.1 % (36.0-47.0); HEMOGLOBIN 12.7 g/dL (12.0-15.5); LYMPH # 0.9 x10^3/uL (1.0-4.8); LYMPH % 20 % (24-48); MEAN CORPUSCULAR HEMOGLOBIN 30 pg (25-35); MEAN CORPUSCULAR HGB CONC 32 g/dL (31-37); MEAN CORPUSCULAR VOLUME 91 fL (79-100); MONO # 0.7 x10^3/uL (0.0-1.1); MONO % 16 % (0-9); NEUT # 2.8 x10^3uL (1.8-7.7); NEUT % 60 % (31-73); PLATELET COUNT 202 x10^3/uL (140-400); RED BLOOD COUNT 4.28 x10^6/uL (3.50-5.40); RED CELL DISTRIBUTION WIDTH 15.8 % (11.5-14.5); WHITE BLOOD COUNT 4.7 x10^3/uL (4.0-11.0)
[2021-06-11 14:47] LABS: ALBUMIN 3.6 g/dL (3.4-5.0); ALBUMIN/GLOBULIN RATIO 0.9 (1.0-1.7); CALCIUM 8.6 mg/dL (8.5-10.1); CREATININE 0.7 mg/dL (0.6-1.0); GFR 80.9; POTASSIUM 3.8 mmol/L (3.5-5.1); TOTAL BILIRUBIN 0.5 mg/dL (0.2-1.0); TOTAL PROTEIN 7.4 g/dL (6.4-8.2)
== END ==
LOC: LAB 14:02
PROVIDERS: ATTEND Nurse Practitioner
DX: I48.0 Paroxysmal atrial fibrillation (principal)
CPT/HCPCS: 36415; 80053; 85025